=== PATIENT | male | born 1960 | race Caucasian/White ===

== ENCOUNTER 2017-09-18 12:19 | Emergency (ER) | payer OTHER, MEDICAID ==
[~2017-09-18] VITALS: Ht 157.5 cm; Wt 63.5 kg
[2017-09-18 12:29] VITALS: Ht 157.5 cm; Wt 63.5 kg
[2017-09-18 13:09] LABS: PLATELET COUNT 200 x10^3mcL (130-400)
[2017-09-18 13:16] LABS: BASOPHIL % 2.3 % (0-2); RED CELL DISTRIBUTION WIDTH 18.7 % (11.5-14.5)
[2017-09-18 13:19] LABS: CALCIUM 9.1 mg/dL (8.5-10.1); CARBON DIOXIDE 24.5 mmol/L (21-32); CHLORIDE SERUM 103 mmol/L (98-107); CREATININE SERUM 0.9 mg/dL (0.7-1.3); GFR1 > 60 mL/min; GLUCOSE SERUM 89 mg/dL (74-106); POTASSIUM SERUM 4.1 mmol/L (3.5-5.1); SODIUM SERUM 140 mmol/L (136-145)
[2017-09-18 13:23] LABS: ALBUMIN 3.6 g/dL (3.4-5.0); ALKALINE PHOSPHATASE 93 U/L (46-116); ALT/SGPT 60 U/L (16-63); AMYLASE 68 U/L (25-115); AST/SGOT 72 U/L (15-37); BILIRUBIN TOTAL 0.42 mg/dL (0.20-1.00); LIPASE 156 IU/L (73-393); TOTAL PROTEIN, SERUM 7.6 g/dL (6.4-8.2)
[2017-09-18 14:20] VITALS: BP 115/60
== END 2017-09-18 14:20 | disposition home or self-care (01) ==
LOC: ED 12:19
PROVIDERS: Emergency Medicine
DX: R10.9 Unspecified abdominal pain (principal); F03.90 Unspecified dementia, unspecified severity, without behavioral disturbance, psychotic disturbance, mood disturbance, and anxiety
CPT/HCPCS: 36415; 83880; J1885

== ENCOUNTER 2017-09-24 10:48 | Emergency (ER) | payer OTHER, MEDICAID ==
[~2017-09-24] VITALS: Ht 157.5 cm; Wt 64.9 kg
[2017-09-24 10:51] VITALS: Ht 157.5 cm; Wt 64.9 kg
[2017-09-24 12:04] VITALS: BP 128/68
== END 2017-09-24 12:04 | disposition home or self-care (01) ==
LOC: ED 10:48
DX: M79.1 Myalgia (principal); W18.30XA Fall on same level, unspecified, initial encounter; Y93.89 Activity, other specified; Y92.89 Other specified places as the place of occurrence of the external cause; Y99.8 Other external cause status

== ENCOUNTER 2017-10-12 03:54 | Emergency (ER) | payer OTHER, MEDICAID ==
[~2017-10-12] VITALS: Ht 162.6 cm; Wt 63.5 kg
[2017-10-12 04:03] VITALS: Ht 162.6 cm; Wt 63.5 kg
[2017-10-12 06:25] VITALS: BP 131/52
== END 2017-10-12 06:25 | disposition home or self-care (01) ==
LOC: ED 03:54
DX: S09.90XA Unspecified injury of head, initial encounter (principal); S01.81XA Laceration without foreign body of other part of head, initial encounter; F10.129 Alcohol abuse with intoxication, unspecified; I10 Essential (primary) hypertension; F03.90 Unspecified dementia, unspecified severity, without behavioral disturbance, psychotic disturbance, mood disturbance, and anxiety; F17.210 Nicotine dependence, cigarettes, uncomplicated; X58.XXXA Exposure to other specified factors, initial encounter; Y93.89 Activity, other specified; Y92.89 Other specified places as the place of occurrence of the external cause; Y99.8 Other external cause status
CPT/HCPCS: 90715; 99406; J2001